=== PATIENT | male | born 1965 | race Caucasian/White ===

== ENCOUNTER 2020-11-24 12:30 | Emergency (ER) | payer SELFPAY ==
[~2020-11-24] VITALS: Ht 182.9 cm; Wt 59.0 kg
[2020-11-24 12:42] VITALS: BP 118/84
--- NOTE | 2020-11-24 13:09 | NUR ---
XRAY AT BEDSIDE.
[2020-11-24 13:17] LABS: BASOPHILS % (AUTO) 1 % (0-1); EOSINOPHILS % (AUTO) 3 % (1-7); LYMPHOCYTES % (AUTO) 25 % (22-44); MEAN CORPUSCULAR HEMOGLOBIN 33.1 pg (27.5-34.5); MEAN CORPUSCULAR HGB CONC 35.2 g/dL (33.2-36.2); MEAN PLATELET VOLUME 8.1 fL (7.4-10.4); MONOCYTES % (AUTO) 8 % (2-9); NEUTROPHILS % (AUTO) 63 % (42-75); PLATELET COUNT 209 x10^3/uL (130-400); RED BLOOD COUNT 5.18 x10^6/uL (4.38-5.82); RED CELL DISTRIBUTION WIDTH 11.9 % (9.4-14.8)
[2020-11-24 13:26] LABS: ALANINE AMINOTRANSFERASE 103 U/L (12-78); ALBUMIN 4.1 g/dL (3.4-5.0); ANION GAP 4 mmol/L (5-15); CALCIUM 9.4 mg/dL (8.5-10.1); CHLORIDE 101 mmol/L (98-107); CREATININE 0.95 mg/dL (0.7-1.3)
[2020-11-24 13:31] LABS: ALKALINE PHOSPHATASE 106 U/L (45-117); TOTAL PROTEIN 8.2 g/dL (6.4-8.2); TROPONIN I < 0.015 ng/mL (0.000-0.045)
[2020-11-24 13:44] LABS: MD SCAN
== END 2020-11-24 14:31 | disposition home or self-care (01) ==
LOC: ED 14:30
DX: R06.00 Dyspnea, unspecified (principal); F41.1 Generalized anxiety disorder; R05 Cough; R06.02 Shortness of breath; F17.200 Nicotine dependence, unspecified, uncomplicated
CPT/HCPCS: 36415; 71045; 80053; 84484; 85025; 93005; 99285

== ENCOUNTER 2021-04-23 22:59 | Emergency (ER) | payer SELFPAY ==
[~2021-04-23] VITALS: Ht 167.6 cm; Wt 68.2 kg
--- NOTE | 2021-04-23 23:29 | NUR ---
pt BIBA for a witnessed seizure at home by friends, EMS stated that pt was smoking meth and drinking alcohol with friends at home and when friends got up to go eat dinner they heard pt let out a load moan and saw friend fall down and hit head against the door frame and then had a seziure for about 3 minutes, pt currently a/ox4 but pt is very agitated and flails his arms and legs around and was combative with EMS so pt put in restraints at this time by security, pt keeps yelling "[facility]!", pt given 2.5mg of IM versed in the ambulance is allergic to penecillin
[2021-04-23] MEDS ORDERED: MIDAZOLAM 1 MG/ML, 5ML IM ONE (23:30)
[2021-04-23] MEDS ORDERED: MIDAZOLAM 1 MG/ML, 2ML ONE (23:33)
[2021-04-23 23:34] LABS: BASOPHILS % (AUTO) 1 % (0-1); EOSINOPHILS % (AUTO) 4 % (1-7); LYMPHOCYTES % (AUTO) 27 % (22-44); MEAN CORPUSCULAR HEMOGLOBIN 33.3 pg (27.5-34.5); MEAN CORPUSCULAR HGB CONC 35.5 g/dL (33.2-36.2); MEAN PLATELET VOLUME 7.6 fL (7.4-10.4); MONOCYTES % (AUTO) 11 % (2-9); NEUTROPHILS % (AUTO) 57 % (42-75); PLATELET COUNT 220 x10^3/uL (130-400); RED BLOOD COUNT 4.47 x10^6/uL (4.38-5.82); RED CELL DISTRIBUTION WIDTH 12.4 % (9.4-14.8)
[2021-04-23 23:43] LABS: ALBUMIN 4.2 g/dL (3.4-5.0); ANION GAP 9 mmol/L (5-15); CALCIUM 9.1 mg/dL (8.5-10.1); CHLORIDE 106 mmol/L (98-107)
[2021-04-23 23:44] LABS: SALICYLATE LEVEL < 1.7 mg/dL (2.8-20.0)
--- NOTE | 2021-04-23 23:48 | NUR ---
pt given IM versed to prevent any more seizures, pt now asleep, vital signs stable
[2021-04-24] MEDS ORDERED: MIDAZOLAM 1 MG/ML, 2ML ONE (00:34)
[2021-04-24] MEDS ORDERED: MIDAZOLAM 1 MG/ML, 5ML IM ONE (01:00)
--- NOTE | 2021-04-24 01:22 | NUR ---
pt no longer in restraints, pt sleeping in bed, CT done, NAD, pt placed on oxygen for when pt is sleeping
--- NOTE | 2021-04-24 02:30 | NUR ---
PT SLEEPING, ALL NEEDS IN REACH, CALL LIGHT IN REACH, NAD
--- NOTE | 2021-04-24 03:31 | NUR ---
PT WOKE UP AND CALLED HIS ROOM MATE AND STARTED ARGUING WITH ROOM MATE, ROOM MATE NOT AVAILAIBLE TO PICK PT UP, PT UPSET BECAUSE ROOM MATE NOT COMING, PT STATED, "CALL THE MARKETING CONTENT SPECIALIST TO DROP ME OFF AT [facility]", THIS RN STATED THAT THIS RN IS CAPABLE TO DO THAT SO THIS RN GOT PT A CAB VOUCHER TO GO HOME
[2021-04-24 03:37] VITALS: BP 112/74
== END 2021-04-24 03:40 | disposition home or self-care (01) ==
LOC: ED 04-24 03:00
DX: F15.10 Other stimulant abuse, uncomplicated (principal); F17.210 Nicotine dependence, cigarettes, uncomplicated
CPT/HCPCS: 36415; 70450; 80048; 80299; 80320; 80329; 82040; 85025; 96372; 99285; J2250; 99406; G0480